=== PATIENT | female | born 1955 | race Caucasian/White ===

== ENCOUNTER 2020-06-07 08:54 | Outpatient (REF) | payer OTHER, SELFPAY | END 2020-06-07 08:55 | disposition home or self-care (01) | LOC: HO.LAB 08:54 | PROVIDERS: PCP Internal Medicine; Visit Provider Internal Medicine | DX: Z20.828 Contact with and (suspected) exposure to other viral communicable diseases (principal) | CPT/HCPCS: C9803; U0003 ==

== ENCOUNTER 2025-04-02 00:50 | Emergency (ER) | payer MEDICARE, SELFPAY ==
--- OUTSIDE RECORDS SUMMARY | 2025-01-16 05:30 | XMS_ITS ---
Author Organization [facility] [address] Address [address] [place] [address] Care Team Providers Care Field Service Technician Name Role Phone JEANNE MINERVA Primary Care Provider Encounters Encounter Location Date Provider Diagnosis [facility] [address] [place] [address] 01/16/2025 MINERVA BISWAS Plan Of Treatment Next Appt Details Provider Name:MINERVA BISWAS, 05/01/2025 09:00:00 AM, [address], [place], [address], Progress Notes * ANDRIA CLAYTON MDOB:1955 (69 yo F)Acc No.[id number]:01/16/2025 Progress Notes Patient: Fausto ANDRIA CHAKRABORTY Provider: Gertrude Biswas MD :1955 A ge:69 Y S ex:Female Date:01/16/2025 Address:[address] [id number] Subjective: * Chief Complaints: * * Medical History: Objective: * Vitals: Assessment: Plan: * Treatment: * Images: Billing Information: * Visit Code: * Procedure Codes: Care Plan Details* * Electronic signature of KADIE BISWAS MD on 04/02/2025 at 03:32 AM EDT Sign off status: Pending * Provider: Gertrude Biswas MD Date: 0 01/16/2025 Generated for Jeri caro/Antonio/Vernonitting on: 1 03:32 AM EDT
[2025-04-02 00:54] VITALS: BP 162/84; PULSE 86; O2SAT 100
[2025-04-02 00:58] VITALS: BP 162/84; PULSE 86; O2SAT 100
[2025-04-02 01:02] VITALS: BP 188/81; PULSE 76; RESP 18; TEMP 36.4; O2SAT 99; BMI 28.7
--- NOTE | 2025-04-02 01:08 | ECG_ITS ---
Test Reason : HTN Blood Pressure : */* mmHG Vent. Rate : 71 BPM Atrial Rate : 71 BPM P-R Int : 196 ms QRS Dur : 88 ms QT Int : 404 ms P-R-T Axes : 42 -14 44 degrees QTcB Int : 439 ms Normal sinus rhythm Normal ECG No previous ECGs available Referred By: Generic ED Physician Electronically Signed By: Eulogio Petersen
[2025-04-02 01:35] LABS: MANUAL DIFF FLAG NO
[2025-04-02 01:38] LABS: Hematocrit 40.8 % (37.0-47.0); Hemoglobin 13.4 g/dl (12.0-16.0); Imm Gran Abs Auto 0.02 X10*3/uL (0.00-0.03); Imm Gran Pct Auto 0.3 % (0.0-0.4); Lymphocytes Absolute Auto 2.0 X10*3/uL (1.2-4.9); Mean Corpuscular HGB Conc 32.8 g/dl (31.0-35.0); Mean Corpuscular Hemoglobin 29.5 pg (27.0-33.0); Mean Corpuscular Volume 89.9 fL (80.0-98.0); NRBC Abs Auto 0.000 X10*3/uL (0.0-0.012); NRBC Pct Auto 0.0 /100WBC (0.0-0.2); Platelet Count 224 X10*3/uL (160-400); Red Blood Count 4.54 X10*6/uL (4.20-5.50); White Blood Count 6.1 X10*3/uL (4.8-10.8)
[2025-04-02 02:01] LABS: Alanine Aminotransferase 20 U/L (0-31); Albumin Level 4.5 g/dL (3.5-5.0); Anion Gap 12 (12-20); Aspartate Amino Transferase 34 U/L (5-31); Blood Urea Nitrogen 16 mg/dL (9-16); Calcium 9.1 mg/dL (8.4-10.2); Carbon Dioxide 23 mmol/L (22-29); Chloride 112 mmol/L (96-108); Creatinine Clr Calc Pharmacy 61.4; Estimated Glomerular Filt Rate > 60; Lipase 36 U/L (8-78); Magnesium 2.0 mg/dL (1.6-2.6); Potassium 4.3 mmol/L (3.3-5.1); Sodium 143 mmol/L (135-145); Total Protein 7.1 g/dL (6.5-8.0); Troponin-I High Sensitivity < 2.7 ng/L (<3.5-17.0)
[2025-04-02 02:20] LABS: Alkaline Phosphatase 84 U/L (39-117)
--- OUTSIDE RECORDS SUMMARY | 2025-04-02 03:33 | XMS_ITS | Clinical Summary ---
Author Organization [facility] Address [address] [place] [phone] Phone Care Team Providers Care Clark Driver Name Role Phone Minerva Biswas MD Primary Care Provider Encounters Date Type Department Care Team Description 03/17/2025 8:48 AM EDT - 03/17/2025 11:59 PM EDT Hospital [facility]counter [facility] at [address] [phone] Encounter for screening mammogram for breast cancer Discharge Disposition: Home or Self Care from Last 3 Months Medical History Medical History Date Comments Epilepsy ([facility] V24, [facility] V28) DX:Epilepsy (HCC) Right knee pain DX:Right knee pa in Seizure ([facility] V24, [facility] V28) DX:Seizure (HCC) Social History Tobacco Use Types Packs/Day Years Used Date Smoking Tobacco: Never Smokeless Tobacco: Never Alcohol Use Standard Drinks/Week Comments Never 0 (1 standard drink = 0.6 oz pur e alcohol) Comments No Sex and Gender Information Value Date Recorded Sex Assigned at Not on file Legal Sex Female 9:57 PM EST Gender Identity Not on file Sexual Orientation Not on file Obstetrics History Para Term AB IAB SAB Ectopic Multiple Livin g Live Births 2 Last Filed Vital Signs Vital Sign Reading Time Taken Comments Blood Pressure 134/64 09/15/2023 7:52 AM EDT Sit ting R Arm Pulse 76 09/15/2023 7:52 AM EDT Temperature - - Respiratory Rate - - Oxygen Saturation - - Inhaled Oxygen Concentration - - Weight 68.9 kg (152 lb) 03/17/2025 8:58 AM EDT Height 160 cm (5' 3 ) 03/17/2025 8:58 AM EDT Body Mass Index 26.93 03/17/2025 8:58 AM EDT Plan of Treatment Health Maintenance Due Date Last Done Comments Colorectal Cancer Screening: Colonoscopy 1955 Pneumococcal Vaccine: 50+ Years (1 of 1 - PCV) 2006 Zoster Vaccines (2 of 3) 08/29/2021 022, 04/01/2021, 01/14/2018 Falls Risk Assessment 05/25/2022 Hepatitis C Screening 05/25/2022 Social Influencers of Health Screening 05/25/2022 Depression Screening 06/15/2024 COVID-19 Vaccine ( season) 2025 03/11/2024, 06/07/2022, 11/05/2021, Additional history exists Influenza Vaccine (#1) 2025 , 04/15/2022, 02/27/2021, Additional history exists Hypertension/CHF/CAD Annual BMP Blood Test 01/09/2026 01/09/2025 Breast Cancer Screening 03/17/2027 03/17/20, 03/16/2024, 09/25/2022, Additional history exists Cholesterol Screening (Lipid Panel) 01/09/2030 01/09/2025 DTaP,Tdap,and Td Vaccines (2 - Td or Tdap) 07/04/2031 07/04/2021 RSV Immunization Adult Patients (1 - 1-dose 75+ series) 10/23/2031 Osteoporosis Screening (Bone Density Screening) 03/16/2034 03/16/2024 HIB Vaccines Aged Out No longer eligi ble based on patient's age to complete this topic HPV Vaccines Aged Out No longer eligi ble based on patient's age to complete this topic Hepatitis A Vaccines Aged Out No long er eligible based on patient's age to complete this topic Hepatitis B Vaccines Aged Out No long er eligible based on patient's age to complete this topic IPV Vaccines Aged Out No longer eligi ble based on patient's age to complete this topic MMR Vaccines Aged Out No longer eligi ble based on patient's age to complete this topic Meningococcal ACWY Vaccine Aged Out N o longer eligible based on patient's age to complete this topic Meningococcal B Vaccine Aged Out No l onger eligible based on patient's age to complete this topic RSV Immunization Patients Under 20 months Aged Out No longer eligible based on patient's age to complete this topic Varicella Vaccines Aged Out No longer eligible based on patient's age to complete this topic Procedures Procedure Name Priority Date/Time Associated Diagnosis Comments MG MAMMO DIGITAL SCREENING W VIGNESH BILAT Routine 03/17/2025 9:04 AM EDT Encounter for screening mammogram for breast cancer CBC WITH AUTO DIFFERENTIAL Routine 01/09/2025 8:10 AM EDT Routine general medical examination at a health care facility Screening for lipoid disorders Epilepsy ([facility] V24, [facility] V28) LIPID PANEL WITH REFLEX TO DIRECT LDL Routine 01/09/2025 8:10 AM EDT Routine general medical examination at a health care facility Screening for lipoid disorders Epilepsy ([facility] V24, [facility] V28) COMPREHENSIVE METABOLIC PANEL Routine 01/09/2025 8:10 AM EDT Routine general medical examination at a health care facility Screening for lipoid disorders Epilepsy (CMS/HCC V24, CMS/HCC V28) CBC AND DIFFERENTIAL Routine 01/09/2025 8:10 AM EDT Routine general medical examination at a health care facility Screening for lipoid disorders Epilepsy (CMS/HCC V24, CMS/HCC V28) CARBAMAZEPINE LEVEL, TOTAL Routine 01/09/2025 8:10 AM EDT Routine general medical examination at a health care facility Screening for lipoid disorders Epilepsy ([facility]/HCC V24, CMS/HCC V28) KENNY DEXA AXIAL SKELETON Routine 03/16/2024 9:04 AM EDT Encounter for screening for osteoporosis from Last 3 Months or Most Recently Relevant to Health Maintenance Results * MG Mammo Digital Screening w Vignesh bilat (03/17/2025 9:04 AM EDT) Anatomical Region Laterality Modality Breast Bilateral Mammography 03/17/2025 9:08 AM EDT Impressions 03/17/2025 9:11 AM EDT No mammographic evidence of malignancy. A negative mammogram in the presence of a clinically suspicious palpable abnormality does not preclude the possibility of malignancy or alter the indications for biopsy. PQRI CPT II 3342F Code 53554, 78778 PQRI 225 CPT II 7025F TISSUE DENSITY: There are scattered areas of fibroglandular density. (BI-RADS category B) IMPRESSION: Benign. BI-RADS CATEGORY: 1 - NEGATIVE RECOMMENDATION: Screening bilateral mammogram is recommended in 1 year. Mammo Location: [facility], [address] [place] [address] -------- FINAL REPORT -------- Dictated By: Jeronimo Robles Dictated Date: 03/17/2025 09:08 ET Assigned Physician: Jeronimo Robles Reviewed and Electronically Signed By: Jeronimo Robles Signed Date: 03/17/2025 09:11 ET Workstation ID: [id number] Transcribed By: Self Edit Transcribed Date: 03/17/2025 09:08 ET Narrative 03/17/2025 9:11 AM EDT CLINICAL: The patient is a 69 years Female presenting for routine screening mammography. COMPARISON: Most recently 03/16/2024 and most remotely 11/28/2015. TECHNIQUE: Full-field digital mammography of the breasts bilaterally consisting of tomosynthesis in MLO and CC projection is performed in the Tern 2000-D unit. Computer aided detection utilizing the iCAD system was utilized. FINDINGS: The breasts are again seen to be composed of a combination of fatty and fibroglandular elements. There is no suspicious cluster of microcalcifications, mass, or area of architectural distortion. There is no skin thickening or nipple retraction. Procedure Note Jeronimo Robles MD - 03/17/2025 CLINICAL: The patient is a 69 years Female presenting for routinescreening mammography. COMPARISON: Most recently 03/16/2024 and most remotely 11/28/2015. TECHNIQUE: Full-field digital mammography of the breasts bilaterallyconsisting of tomosynthesis in MLO and CC projection is performed in theGE Senographe 2000-D unit. Computer aided detection utilizing the PronotaDsystem was utilized. FINDINGS: The breasts are again seen to be composed of a combination offatty and fibroglandular elements. There is no suspicious cluster ofmicrocalcifications, mass, or area of architectural distortion. There isno skin thickening or nipple retraction. IMPRESSION: No mammographic evidence of malignancy. A negative mammogram in the presence of a clinically suspicious palpableabnormality does not preclude the possibility of malignancy or alter theindications for biopsy. PQRI CPT II 3342F Code 16083, 71828 PQRI 225 CPT II 7025F TISSUE DENSITY: There are scattered areas of fibroglandular density.(BI-RADS category B) IMPRESSION: Benign. BI-RADS CATEGORY: 1 - NEGATIVE RECOMMENDATION: Screening bilateral mammogram is recommended in 1 year. Mammo Location: [facility], [address] [place] [id number] -------- FINAL REPORT -------- Dictated By: Jeronimo Robles Dictated Date: 03/17/2025 09:08 ET Assigned Physician: Jeronimo Robles Reviewed and Electronically Signed By: Jeronimo Robles Signed Date: 03/17/2025 09:11 ET Workstation ID: [id number] Transcribed By: Self Edit Transcribed Date: 03/17/2025 09:08 ET us Self Referral [facility] IMG BI PROCEDURES Final Resul t * (ABNORMAL) Lipid panel with reflex to direct LDL (01/09/2025 8:10 AM EDT) Cholesterol 229(H) 0 - 200 mg/dL LAB CHEMISTRY METHOD 01/09/2025 9:42 AM EDT [facility] Triglycerides 148 0 - 150 mg/dL LAB CHEMISTRY METHOD 01/09/2025 9:42 AM EDT [facility] HDL 59 >=40 mg/dL LAB CHEMISTRY METHOD 01/09/2025 9:42 AM EDT [facility] LDL Calculated 140(H) 0 - 100 mg/dL LAB CHEMISTRY METHOD 01/09/2025 9:42 AM EDT [facility] VLDL Cholesterol Markus 29.6 mg/dL LAB CHEMISTRY METHOD 01/09/2025 9:42 AM EDT [facility] Non HDL Chol. (LDL+VLDL) 170(H) <145 mg/dL LAB CHEMISTRY METHOD 01/09/2025 9:42 AM EDT [facility] Chol/HDL Ratio 3.9 0.0 - 4.4 LAB CHEMISTRY METHOD 01/09/2025 9:42 AM EDT [facility] Blood Venous blood specimen / Unknown Venipuncture / Unknown 01/09/2025 8:10 AM EDT 01/09/2025 9:06 AM EDT Minerva Biswas MD LAB BLOOD ORDERABLES Final Resul t [facility] [address] [place] [address], * (ABNORMAL) CBC auto differential (01/09/2025 8:10 AM EDT) WBC 3.8(L) 4.8 - 10.8 K/mcL LAB HEMETOLOGY METHOD 01/09/2025 9:23 AM [facility] RBC 4.30 3.80 - 4.80 M/mcL LAB HEMETOLOGY METHOD 01/09/2025 9:23 AM T [facility] Hemoglobin 12.5 11.5 - 16.0 g/dL LAB HEMETOLOGY METHOD 01/09/2025 9:23 AM T [facility] Hematocrit 39.4 35.0 - 47.0 % LAB HEMETOLOGY METHOD 01/09/2025 9:23 AM T [facility] MCV 91.8 79.0 - 98.0 FL LAB HEMETOLOGY METHOD 01/09/2025 9:23 AM [facility] MCH 29.1 27.0 - 32.0 pcg LAB HEMETOLOGY METHOD 01/09/2025 9:23 AM [facility] MCHC 31.7(L) 32.0 - 37.0 g/dL LAB HEMETOLOGY METHOD 01/09/2025 9:23 AM [facility] RDW 13.1 11.0 - 15.0 % LAB HEMETOLOGY METHOD 01/09/2025 9:23 AM [facility] Platelets 240 130 - 400 K/mcL LAB HEMETOLOGY METHOD 01/09/2025 9:23 AM [facility] MPV 10.5 7.0 - 11.0 FL LAB HEMETOLOGY METHOD 01/09/2025 9:23 AM [facility] NRBC 0.0 <1.0 % LAB HEMETOLOGY METHOD 01/09/2025 9:23 AM [facility] NRBC Absolute 0.00 <0.10 K/mcL LAB HEMETOLOGY METHOD 01/09/2025 9:23 AM [facility] Neutrophils Relative 50.9 % LAB HEMETOLOGY METHOD 01/09/2025 9:23 AM [facility] Lymphocytes Relative 39.7 % LAB HEMETOLOGY METHOD 01/09/2025 9:23 AM [facility] Monocytes Relative 7.3 % LAB HEMETOLOGY METHOD 01/09/2025 9:23 AM [facility] Eosinophils Relative 1.6 % LAB HEMETOLOGY METHOD 01/09/2025 9:23 AM [facility] Basophils Relative 0.5 % LAB HEMETOLOGY METHOD 01/09/2025 9:23 AM [facility] Immature Granulocytes Relative 0.0 % LAB HEMETOLOGY METHOD 01/09/2025 9:23 AM [facility] Neutrophils Absolute 1.95 1.50 - 7.00 K/mcL LAB HEMETOLOGY METHOD 01/09/2025 9:23 AM EDT [facility] Lymphocytes Absolute 1.52 1.00 - 5.00 K/[facility] LAB HEMETOLOGY METHOD 01/09/2025 9:23 AM EDT [facility] Monocytes Absolute 0.28 0.20 - 1.00 K/[facility] LAB HEMETOLOGY METHOD 01/09/2025 9:23 AM EDT [facility] Eosinophils Absolute 0.06 0.00 - 0.50 K/[facility] LAB HEMETOLOGY METHOD 01/09/2025 9:23 AM EDT [facility] Basophils Absolute 0.02 0.00 - 0.20 K/[facility] LAB HEMETOLOGY METHOD 01/09/2025 9:23 AM EDT [facility] Immature Granulocytes Absolute 0.00 0.00 - 0.03 K/[facility] LAB HEMETOLOGY METHOD 01/09/2025 9:23 AM EDT [facility] Blood Venous blood specimen / Unknown Venipuncture / Unknown 01/09/2025 8:10 AM EDT 01/09/2025 9:08 AM EDT us Minerva Biswas MD LAB BLOOD ORDERABLES Final Resul t [facility] [address] [place] [address], * Carbamazepine level, total (01/09/2025 8:10 AM EDT) Carbamazepine Level 8.4 8.0 - 12.0 mcg/mL LAB CHEMISTRY METHOD 01/09/2025 9:42 AM EDT [facility] Blood Venous blood specimen / Unknown Venipuncture / Unknown 01/09/2025 8:10 AM EDT 01/09/2025 9:06 AM EDT us Minerva Biswas MD LAB BLOOD ORDERABLES Final Resul t [facility] [address] [place] [address], * (ABNORMAL) Comprehensive metabolic panel (01/09/2025 8:10 AM EDT) Sodium 141 133 - 145 mmol/L LAB CHEMISTRY METHOD 01/09/2025 9:42 AM [facility] Potassium 4.0 3.5 - 5.5 mmol/L LAB CHEMISTRY METHOD 01/09/2025 9:42 AM [facility] Chloride 111(H) 96 - 110 mmol/L LAB CHEMISTRY METHOD 01/09/2025 9:42 AM [facility] CO2 27 21 - 32 mmol/L LAB CHEMISTRY METHOD 01/09/2025 9:42 AM [facility] Anion Gap 3 3 - 11 LAB CHEMISTRY METHOD 01/09/2025 9:42 AM [facility] Glucose 89 70 - 100 mg/dL LAB CHEMISTRY METHOD 01/09/2025 9:42 AM [facility] BUN 10 5 - 25 mg/dL LAB CHEMISTRY METHOD 01/09/2025 9:42 AM [facility] Creatinine 0.71 0.50 - 1.10 mg/dL LAB CHEMISTRY METHOD 01/09/2025 9:42 AM [facility] eGFR 93 >=60 mL/min/1. 73m2 LAB CHEMISTRY METHOD 01/09/2025 9:42 AM [facility] Comment:Calculation based on the Chronic Kidney Disease Epidemiology Collaboration (CKD-EPI) equation refit without adjustment for race. BUN/Creatinine Ratio 14.1 LAB CHEMISTRY METHOD 01/09/2025 9:42 AM [facility] Calcium 8.8 8.5 - 10.5 mg/dL LAB CHEMISTRY METHOD 01/09/2025 9:42 AM EDT [facility] AST (SGOT) 20 10 - 42 unit/L LAB CHEMISTRY METHOD 01/09/2025 9:42 AM EDT [facility] ALT (SGPT) 20 10 - 60 unit/L LAB [facility]STR[facility] Alkaline Phosphatase 83 42 - 121 unit/L LAB CHEMISTRY METHOD 01/09/2025 9:42 AM EDT [facility] Total Protein 6.7 6.0 - 8.0 g/dL LAB CHEMISTRY METHOD 01/09/2025 9:42 AM T [facility] Albumin 3.6 3.2 - 5.0 g/dL LAB CHEMISTRY METHOD 01/09/2025 9:42 AM [facility] Total Bilirubin 0.3 0.0 - 1.4 mg/dL LAB CHEMISTRY METHOD 01/09/2025 9:42 AM EDT [facility] Blood Venous blood specimen / Unknown Venipuncture / Unknown 01/09/2025 8:10 AM EDT 01/09/2025 9:06 AM EDT us Minerva Biswas MD LAB BLOOD ORDERABLES Final Resul t [facility] [address] [place] [address], * KENNY DEXA AXIAL SKELETON (03/16/2024 9:04 AM EDT) Anatomical Region Laterality Modality Mammography 03/16/2024 7:13 AM EDT Narrative 03/16/2024 9:04 AM EDT [facility] Diagnostic Imaging Department [address] [place] [address] Patient: ANDRIA CLAYTON /Age/Sex: 1955 68 - F Unit#: [id number] Location/Status: SPDIMA/REG CLI [facility] Ordering Physician: MINERVA BISWAS MD Kenny Dexa Axial Skeleton - 03/16/24730 Report Status:Signed HISTORY: The patient is a 68-year-old postmenopausal female with clinical concern for metabolic bone disease. FINDINGS: Dual energy x-ray absorptiometry of the lumbar spine and femurs is performed. The mean bone mineral density at L2-4 is 1.010 gm/cm2 which is 84% of that of young normals and 101% of that of age matched controls. This yields a T- score of -1.6 and a Z-score of 0.0 which is diagnostic of osteopenia. The mean bone mineral density of the femurs bilaterally is 0.795 gm/cm2 which is 79% of that of young normals and 94% of that of age matched controls. This yields a T-score of -1.7 and a Z-score of -0.4 which is diagnostic of osteopenia. IMPRESSION: 1. Osteopenia. There has been a decrease of 6.9% in bone mineral density in the lumbar spine since the prior examination of 10/26/2014. There has been a decrease of 8.5% in bone mineral density in the right femur and a decrease of 1.0% in bone mineral density in the left femur. 2. FRAX analysis yields a 10-year probability of major osteoporotic fracture of 5.3% and a 10-year probability of hip fracture of 0.6%. Code 46234 Dictating Physician: JERONIMO ROBLES MD Electronically Signed by: JERONIMO ROBLES MD Dic Date/Time: 03/16/24 0859 Sign date/Time: 03/16/24 0904 Procedure Note Jeronimo Robles MD - 04/12/2024 [facility] Diagnostic Imaging Department [address] [place] [id number] Patient: ANDRIA CLAYTON Belinda GerardoB./Age/Sex: 1955 - 68 - F Unit#: [id number] Location/Status: [facility] CLI Mnemonic/Ordering Site: [facility] Ordering Physician: MINERVA BISWAS MD Kenny Dexa Axial Skeleton - 03/16/24730 Report Status:Signed HISTORY: The patient is a 68-year-old postmenopausal female withclinical concern for metabolic bone disease. FINDINGS: Dual energy x-ray absorptiometry of the lumbar spine and femursis performed. The mean bone mineral density at L2-4 is 1.010 gm/cm2 which is84% of that of young normals and 101% of that of age matched controls. Thisyields a T- score of -1.6 and a Z-score of 0.0 which is diagnostic of osteopenia. The mean bone mineral density of the femurs bilaterally is 0.795 gm/zx2tzamy is 79% of that of young normals and 94% of that of age matched controls.This yields a T-score of -1.7 and a Z-score of -0.4 which is diagnostic of osteopenia. IMPRESSION: 1. Osteopenia. There has been a decrease of 6.9% in bone mineral densityin the lumbar spine since the prior examination of 10/26/2014. There has tanner decrease of 8.5% in bone mineral density in the right femur and a decreaseof 1.0% in bone mineral density in the left femur. 2. FRAX analysis yields a 10-year probability of major osteoporoticfracture of 5.3% and a 10-year probability of hip fracture of 0.6%. Code 86009 Dictating Physician: JERONIMO ROBLES MD Electronically Signed by: JERONIMO ROBLES MD Dic Date/Time: 03/16/24 0859 Sign date/Time: 03/16/2404 Minerva Biswas MD IMG BI PROCEDURES Final Result from Last 3 Months or Most Recently Relevant to Health Maintenance Insurance [facility] Care Teams Clark Driver Relationship Specialty Start Date End Date Minerva Biswas MD [address] [place] [address] [id number] PCP - General Internal Medicine 12/13/24
--- OUTSIDE RECORDS SUMMARY | 2025-04-02 03:33 | XMS_ITS | Patient Health Record ---
Author Organization [facility] [address] Address [address] [place] [address] Care Team Providers Care Sales Department Clerk Name Role Phone MINERVA BISWAS Primary Care Provider [phone] PIZANOKENNY Unavailable [phone] Allergies No Known Allergies Results Component Value Reference Range Notes MG MAMMO DIGITAL SCREENING W ROSSY BILAT Reviewed date:03/21/2025 10:52:06 AM Interpretation: Performing Lab: Notes/Report: Note See Note [facility], a member of [facility] Patient Name: ANDRIA CLAYTON Date of : 1955 Reason for Exam: Exam Date: 03/17/2025 [id number] EST Report Status: Final Ordering Provider: SELF REFERRAL SFPL PCP: MINERVA BISWAS CLINICAL: The burt marcum is a 69 years Female presenting for routine screening mammography. COMPARISON: Most recently 03/16/2024 and most remotely 11/28/2015. TECHNIQUE: Full-fiel d digital mammography of the breasts bilaterally consisting of tomosynthesis in MLO and CC projection is performed in the [employer] 2000-D unit. Computer aided detection utilizing the iCAD system was utilized. FINDINGS: The breast s are again seen to be composed of a combination of fatty and fibroglandular elements. There is no suspicious cluster of microcalcifications, mass, or area of architectural distortion. There is no skin thickening or nipple retraction. IMPRESSION: No mammographic evidence of malignancy. A negative mammogram in the presence of a clinically suspicious palpable abnormality does not preclude the possibility of malignancy or alter the indications for biopsy. PQRI CPT II 3342F Code 88546, 34705 PQRI 225 CPT II 7025F TISSUE DENSITY: Ther e are scattered areas of fibroglandular density. (BI-RADS category B) IMPRESSION: Benign. BI-RADS CATEGORY: 1 - NEGATIVE RECOMMENDATION: Screening bilateral mammogram is recommended in 1 year. Mammo Location: [facility], [address] [place] [id number] -------- FINAL REPOR T -------- Dictated By: James Robles Dictated Date: 03/17/2025 09:08 ET Assigned Physician: James Robles Reviewed and Electronically Signed By: James Robles Signed Date: 09:11 ET Workstation ID: [id number] Transcribed By: Self Edit Transcribed Date: 03/17/2025 09:08 ET CARBAMAZEPINE LEVEL, TOTAL Reviewed date:01/13/2025 10:38:40 AM Interpretation: Performing Lab: Notes/Report: Carbamazepine Level 8.4 8.0-12.0 mcg/mL COMPREHENSIVE METABOLIC PANE L Reviewed date:01/17/2025 09:40:26 AM Interpretation: Performing Lab: Notes/Report: Sodium 141 133-145 mmol/L Potassium 4.0 3.5-5.5 mmol/L Chloride 111 96-110 mmol/L CO2 27 21-32 mmol/L Anion Gap 3 3-11 Glucose 89 70-100 mg/dL BUN 10 5-25 mg/dL Creatinine 0.71 0.50-1.10 mg/dL eGFR 93 >=60 mL/min/1.73m2 Calculati on based on the Chronic Kidney Disease Epidemiology Collaboration (CKD-EPI) equation refit without adjustment for race. BUN/Creatinine Ratio 14.1 Calcium 8.8 8.5-10.5 mg/dL AST (SGOT) 20 10-42 unit/L ALT (SGPT) 20 10-60 unit/L Alkaline Phosphatase 83 42-121 unit/L Total Protein 6.7 6.0-8.0 g/dL Albumin 3.6 3.2-5.0 g/dL Total Bilirubin 0.3 0.0-1.4 mg/dL LIPID PANEL WITH REFLEX TO D IRECT LDL Reviewed date:01/17/2025 09:40:54 AM Interpretation: Performing Lab: Notes/Report: Cholesterol 229 0-200 mg/dL Triglycerides 148 0-150 mg/dL HDL 59 >=40 mg/dL LDL Calculated 140 0-100 mg/dL VLDL Cholesterol Markus 29.6 Non HDL Chol. (LDL+VLDL) 170 <145 mg/dL Chol/HDL Ratio 3.9 0.0-4.4 CBC WITH AUTO DIFFERENTIAL Reviewed date:01/17/2025 09:40:34 AM Interpretation: Performing Lab: Notes/Report: WBC 3.8 4.8-10.8 K/mcL RBC 4.30 3.80-4.80 M/mcL Hemoglobin 12.5 11.5-16.0 g/dL Hematocrit 39.4 35.0-47.0 % MCV 91.8 79.0-98.0 FL MCH 29.1 27.0-32.0 pcg MCHC 31.7 32.0-37.0 g/dL RDW 13.1 11.0-15.0 % Platelets 240 130-400 K/mcL MPV 10.5 7.0-11.0 FL NRBC 0.0 <1.0 % NRBC Absolute 0.00 <0.10 K/mcL Neutrophils Relative 50.9 Lymphocytes Relative 39.7 Monocytes Relative 7.3 Eosinophils Relative 1.6 Basophils Relative 0.5 Immature Granulocytes Relative 0.0 Neutrophils Absolute 1.95 1.50-7.00 K/mcL Lymphocytes Absolute 1.52 1.00-5.00 K/mcL Monocytes Absolute 0.28 0.20-1.00 K/mcL Eosinophils Absolute 0.06 0.00-0.50 K/mcL Basophils Absolute 0.02 0.00-0.20 K/mcL Immature Granulocytes Absolute 0.00 0.00-0.03 K/mcL Reason For Referral No Information Medications Medication SIG (Take, Route, Frequency, Duration) Notes Start Date End Date Status Aspirin 81 81 MG 1 tablet Orally Once a day; Duration: 90 days Active Atorvastatin Calcium 40 MG 1 tablet in t he AM Orally Once a day; Duration: 90 days Active amLODIPine Besylate 2.5 MG 1 tablet Oral ly Once a day; Duration: 90 days Active carBAMazepine 200 MG two tablets Orally nightly; Duration: 90 days Active Immunizations Vaccine Route Administration Date Status Comme nts influenza IM Intramuscular 04/24/2020 Administered influenza IM Intramuscular 02/27/2021 Administered Influenza, seasonal, injectable, preservative free, 3 yrs and above IM Intramuscular 04/18/2019 Administered Moderna Covid-19 Vaccine IM Intramuscular 08/14/2020 Administered Moderna Covid-19 Vaccine IM Intramuscular 09/08/2020 Administered SHINGRIX IM Intramuscular 01/14/2018 Administered SHINGRIX IM Intramuscular 04/01/2021 Administered SHINGRIX SC Subcutaneous 07/04/2021 Administered R yoan p SQ Td (adult) preservative free IM Intramuscular 07/04/2021 Administered Social History Tobacco Use: Social History Observation Description Date Details (start date - stop date) Never Smoker NA - NA Tobacco Use/Smoking Question Answer Notes Are you a nonsmoker Section Notes: alcohol: declines tob: declines drug: declines 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 Problems Problem Type SNOMED Code ICD Code Onset Dates Problem Status W/U Status Risk Notes Problem Obesity due to exces s calories (743029789) Other obesity due to excess calories (E66.09) Active confirmed Problem Mixed hyperlipidemia (318175243) Mixed hyperlipidemia (E78.2) Active confirmed Problem Hypokalemia (53513410) Hypokalemia (E87.6) Active confirmed Problem Epilepsy (20177070) Epilepsy, unspecified, not intractable, without status epilepticus (G40.909) Active confirmed Problem Cardiac arrhythmia (599026562) Cardiac arrhythmia, unspecified (I49.9) Active confirmed Problem Allergic rhinitis (33969962) Other allergic rhinitis (J30.89) Active confirmed Problem Chronic sinusitis (81964345) Chronic sinusitis, unspecified (J32.9) Active confirmed Problem Adult health examination (711369571) Encounter for general adult medical examination without abnormal findings (Z00.00) Active confirmed Problem Screening for malignant neoplasm of breast (360425444) Encounter for screening mammogram for malignant neoplasm of breast (Z12.31) Active confirmed Problem Screening for osteoporosis (759474751) Encounter for screening for osteoporosis (Z13.820) Active confirmed Problem Essential hypertension (96551638) Essential hypertension (I10) Active confirmed Problem Hyperlipidaemia (93818847) Hyperlipidemia, unspecified hyperlipidemia type (E78.5) Active confirmed Problem Hyperlipoproteinemia (4083521) Acquired hyperlipoproteinemia (E78.5) Active confirmed Problem Annual health maintenance examination (05120475) Annual physical exam (Z00.00) Active confirmed Problem Vitamin D deficiency (85139793) Vitamin D deficiency (E55.9) Active confirmed Problem Seizure disorder (379968939) Seizure disorder (G40.909) Active confirmed Problem Confusion (78879467) Confusion (R41.0) Active c onfirmed Problem Cataract (863571505) Cataract of both eyes, unspecified cataract type (H26.9) Active confirmed Problem Constipation (89554777) Constipation in female (K59.00) Active confirmed Problem Urinary frequency (457229946) Urinary frequency (R35.0) Active confirmed Problem Elevated blood pressure reading without diagnosis of hypertension (150731280) Elevated blood pressure reading in office with white coat syndrome, without diagnosis of hypertension (R03.0) Active confirmed Problem Body mass index 30+ - obesity (872014643) Body mass index [BMI] 30.0-30.9, adult (Z68.30) Active confirmed Problem Epilepsy (43950623) Nonintractab le epilepsy without status epilepticus, unspecified epilepsy type (G40.909) Active confirmed Problem Post-discharge follow-up (439407438) Hospital discharge follow-up (Z09) Active confirmed Problem Lipid screening (205269642) Lipid screening (Z13.220) Active confirmed Vital Signs Heart Rate 83 /min 01/23/2025 Oximetry 98 % 01/23/2025 Blood pressure diastolic 80 mm Hg 01/23/2025 Height 62 in 01/23/2025 Blood pressure systolic 128 mm Hg 01/23/2025 Weight 149.8 lbs 01/23/2025 BMI 27.4 kg/m2 01/23/2025 Encounters Encounter Location Date Provider Diagnosis [facility] [address] [place], [place] 09/19/2024 TALAL BISWAS Seizure disorder G40 .909 and Hyperlipidemia, unspecified hyperlipidemia type E78.[address] [facility] [address] [place], [place] 01/23/2025 KENNY PIZANO Mixed hyperlipidemia E78.2 ; BMI 27.0-27.9,adult Z68.27 ; Other epilepsy without status epilepticus, not intractable G40.802 ; Essential hypertension I10 and Encounter for examination of blood pressure without abnormal findings Z01.30 [facility] [address] [place] [id number] 10/04/2024 MINERVA BISWAS [facility] [address] [place] [address] 01/13/2025 MINERVA BISWAS Assessments Encounter Date Diagnosis (ICD Code) Assessment Notes Treatment Notes Treatment Clinical Notes Section Notes 01/23/2025 Mixed hyperlipidemia (ICD-10 - E78.2) Andria is a pleasant 69-year-old female presents the office for follow-up visit. # Epilepsy: Has been multiple decades since she has had a seizure. Takes carbamazepine, is supposed to take 200 mg twice daily, but she takes 400 mg nightly. # Hypertension: Blood pressure stable 128/80. Takes amlodipine 2.5 mg as needed. She will monitor her blood pressure at home daily and take as needed. Most of the time, she states her blood pressure is within the 120s over 70s. # Does not take baby aspirin, discussed effects and protective cardiovascular effects. # Hyperlipidemia: Lipids February 2025 within normal limits total cholesterol 151, triglycerides 65, HDL 62 and LDL 76. Previous lipid panel has since increased, cholesterol 229 LDL 140, non-HDL 170. Will reinitiate atorvastatin 40 mg.Discussed coronary calcium scan for screening, but patient states she is not interested at this time. # Patient has low white blood cell count at 3.8. Declines any recent sick contacts, vaccinations, illness. Will repeat CBC. Patient requesting to follow-up with Dr.T Biswas, due for Medicare wellness visit in 3 months, will book with fasting labs. All quetsions answered to patients satisfaction. Patient verbalized understanding of diagnosis and treatments explained. To call sooner prior to next visit it any questions/concerns arise. Case discussed with collaborating physician Kayy Biswas who reviewed the assessment and plan. Chart, medications, labs, vital signs reviewed. Dictation was accomplished with the use of [employer] voice recognition software, prone to medical misidentifications and grammatical errors. This is unintentional and the practitioner does try to identify and correct these, but some could still be present. Please do not hesitate to contact practitioner for clarification. 01/23/2025 BMI 27.0-27.9,adult (ICD-10 - Z68.27) Andria is a pleasant 69-year-old female presents the office for follow-up visit. # Epilepsy: Has been multiple decades since she has had a seizure. Takes carbamazepine, is supposed to take 200 mg twice daily, but she takes 400 mg nightly. # Hypertension: Blood pressure stable 128/80. Takes amlodipine 2.5 mg as needed. She will monitor her blood pressure at home daily and take as needed. Most of the time, she states her blood pressure is within the 120s over 70s. # Does not take baby aspirin, discussed effects and protective cardiovascular effects. # Hyperlipidemia: Lipids February 2025 within normal limits total cholesterol 151, triglycerides 65, HDL 62 and LDL 76. Previous lipid panel has since increased, cholesterol 229 LDL 140, non-HDL 170. Will reinitiate atorvastatin 40 mg.Discussed coronary calcium scan for screening, but patient states she is not interested at this time. # Patient has low white blood cell count at 3.8. Declines any recent sick contacts, vaccinations, illness. Will repeat CBC. Patient requesting to follow-up with Dr.T Biswas, due for Medicare wellness visit in 3 months, will book with fasting labs. All quetsions answered to patients satisfaction. Patient verbalized understanding of diagnosis and treatments explained. To call sooner prior to next visit it any questions/concerns arise. Case discussed with collaborating physician Kayy Biswas who reviewed the assessment and plan. Chart, medications, labs, vital signs reviewed. Dictation was accomplished with the use of [employer] voice recognition software, prone to medical misidentifications and grammatical errors. This is unintentional and the practitioner does try to identify and correct these, but some could still be present. Please do not hesitate to contact practitioner for clarification. 09/19/2024 Seizure disorder (ICD-10 - G40.909) Your patient was diagnosed with dyslipidemia. Discussed the role of [place] [employer] guidelines of lowering LDL to 100 or below and LDL of less than 70 in diabetics or previous history of heart attack. Discussed raising HDL to 50 or 60. Discussed role of incorporation of wild caught fish or use of fish oil supplements as appropriate. Discussed triglyceride levels to be below 100 and role of oxidation of LDL with oxidative stress with metabolic syndrome high visceral adiposity, and consumption of standard [place] diet. Educated on role of lifestyle elimination of processed food eating clean home cooking, diet and exercise in lowering cholesterol. Discussed the role of such statins. Candid discussion on risk factors versus benefits. Recommended either rosuvastatin or atorvastatin. Explored the role of co-Q10 as appropriate. [place] [employer] goal of 6-10,000 steps a day. in some cases there may be use of Zetia or PSK 9 inhibitors. Discussed role of coronary calcium scan for calcium buildup in the coronary arteries which is case specific and should be individualized. Discussed role of turmeric, to help with inflammation, lowered the CRP, along with gut health use of probiotics, eating yogurt and a balanced diet. Discussed role of good fats including organic butter , avoidance of margarine and processed sugar, white bread high fructose corn syrup, canned food chips soda and alcohol, and consumption of organic eggs as appropriate patient will continue to lose weight which will improve her cholesterol continue taking carbamazepine for seizure disorder with level monitoring. And follow-up in a few months 01/23/2025 Other epilepsy without status epilepticus, not intractable (ICD-10 - G40.802) Andria is a pleasant 69-year-old female presents the office for follow-up visit. # Epilepsy: Has been multiple decades since she has had a seizure. Takes carbamazepine, is supposed to take 200 mg twice daily, but she takes 400 mg nightly. # Hypertension: Blood pressure stable 128/80. Takes amlodipine 2.5 mg as needed. She will monitor her blood pressure at home daily and take as needed. Most of the time, she states her blood pressure is within the 120s over 70s. # Does not take baby aspirin, discussed effects and protective cardiovascular effects. # Hyperlipidemia: Lipids February 2025 within normal limits total cholesterol 151, triglycerides 65, HDL 62 and LDL 76. Previous lipid panel has since increased, cholesterol 229 LDL 140, non-HDL 170. Will reinitiate atorvastatin 40 mg.Discussed coronary calcium scan for screening, but patient states she is not interested at this time. # Patient has low white blood cell count at 3.8. Declines any recent sick contacts, vaccinations, illness. Will repeat CBC. Patient requesting to follow-up with Dr.T Biswas, due for Medicare wellness visit in 3 months, will book with fasting labs. All quetsions answered to patients satisfaction. Patient verbalized understanding of diagnosis and treatments explained. To call sooner prior to next visit it any questions/concerns arise. Case discussed with collaborating physician Kayy Biswas who reviewed the assessment and plan. Chart, medications, labs, vital signs reviewed. Dictation was accomplished with the use of [employer] voice recognition software, prone to medical misidentifications and grammatical errors. This is unintentional and the practitioner does try to identify and correct these, but some could still be present. Please do not hesitate to contact practitioner for clarification. 09/19/2024 Hyperlipidemia, unspecified hyperlipidemia type (ICD-10 - E78.5) Your patient was diagnosed with dyslipidemia. Discussed the role of [place] [employer] guidelines of lowering LDL to 100 or below and LDL of less than 70 in diabetics or previous history of heart attack. Discussed raising HDL to 50 or 60. Discussed role of incorporation of wild caught fish or use of fish oil supplements as appropriate. Discussed triglyceride levels to be below 100 and role of oxidation of LDL with oxidative stress with metabolic syndrome high visceral adiposity, and consumption of standard [place] diet. Educated on role of lifestyle elimination of processed food eating clean home cooking, diet and exercise in lowering cholesterol. Discussed the role of such statins. Candid discussion on risk factors versus benefits. Recommended either rosuvastatin or atorvastatin. Explored the role of co-Q10 as appropriate. [place] [employer] goal of 6-10,000 steps a day. in some cases there may be use of Zetia or PSK 9 inhibitors. Discussed role of coronary calcium scan for calcium buildup in the coronary arteries which is case specific and should be individualized. Discussed role of turmeric, to help with inflammation, lowered the CRP, along with gut health use of probiotics, eating yogurt and a balanced diet. Discussed role of good fats including organic butter , avoidance of margarine and processed sugar, white bread high fructose corn syrup, canned food chips soda and alcohol, and consumption of organic eggs as appropriate patient will continue to lose weight which will improve her cholesterol continue taking carbamazepine for seizure disorder with level monitoring. And follow-up in a few months 01/23/2025 Essential hypertension (ICD-10 - I10) Andria is a pleasant 69-year-old female presents the office for follow-up visit. # Epilepsy: Has been multiple decades since she has had a seizure. Takes carbamazepine, is supposed to take 200 mg twice daily, but she takes 400 mg nightly. # Hypertension: Blood pressure stable 128/80. Takes amlodipine 2.5 mg as needed. She will monitor her blood pressure at home daily and take as needed. Most of the time, she states her blood pressure is within the 120s over 70s. # Does not take baby aspirin, discussed effects and protective cardiovascular effects. # Hyperlipidemia: Lipids February 2025 within normal limits total cholesterol 151, triglycerides 65, HDL 62 and LDL 76. Previous lipid panel has since increased, cholesterol 229 LDL 140, non-HDL 170. Will reinitiate atorvastatin 40 mg.Discussed coronary calcium scan for screening, but patient states she is not interested at this time. # Patient has low white blood cell count at 3.8. Declines any recent sick contacts, vaccinations, illness. Will repeat CBC. Patient requesting to follow-up with Dr.T Biswas, [facility] for Medicare wellness visit in 3 months, will book with fasting labs. All quetsions answered to patients satisfaction. Patient verbalized understanding of diagnosis and treatments explained. To call sooner prior to next visit it any questions/concerns arise. Case discussed with collaborating physician Kayy Biswas who reviewed the assessment and plan. Chart, medications, labs, vital signs reviewed. Dictation was accomplished with the use of [employer] voice recognition software, prone to medical misidentifications and grammatical errors. This is unintentional and the practitioner does try to identify and correct these, but some could still be present. Please do not hesitate to contact practitioner for clarification. 01/23/2025 Encounter for examination of blood pressure without abnormal findings (ICD-10 - Z01.30) Andria is a pleasant 69-year-old female presents the office for follow-up visit. # Epilepsy: Has been multiple decades since she has had a seizure. Takes carbamazepine, is supposed to take 200 mg twice daily, but she takes 400 mg nightly. # Hypertension: Blood pressure stable 128/80. Takes amlodipine 2.5 mg as needed. She will monitor her blood pressure at home daily and take as needed. Most of the time, she states her blood pressure is within the 120s over 70s. # Does not take baby aspirin, discussed effects and protective cardiovascular effects. # Hyperlipidemia: Lipids February 2025 within normal limits total cholesterol 151, triglycerides 65, HDL 62 and LDL 76. Previous lipid panel has since increased, cholesterol 229 LDL 140, non-HDL 170. Will reinitiate atorvastatin 40 mg.Discussed coronary calcium scan for screening, but patient states she is not interested at this time. # Patient has low white blood cell count at 3.8. Declines any recent sick contacts, vaccinations, illness. Will repeat CBC. Patient requesting to follow-up with Dr.T Biswas, due for Medicare wellness visit in 3 months, will book with fasting labs. All quetsions answered to patients satisfaction. Patient verbalized understanding of diagnosis and treatments explained. To call sooner prior to next visit it any questions/concerns arise. Case discussed with collaborating physician Kayy Biswas who reviewed the assessment and plan. Chart, medications, labs, vital signs reviewed. Dictation was accomplished with the use of [employer] voice recognition software, prone to medical misidentifications and grammatical errors. This is unintentional and the practitioner does try to identify and correct these, but some could still be present. Please do not hesitate to contact practitioner for clarification. Plan Of Treatment Pending Test Test Name Order Date Mammogram 07/30/2022 Mammogram 04/24/2020 Mammogram 04/13/2018 Mammogram 03/08/2024 Lipid Panel 02/21/2019 Comp. Metabolic Panel (14) 02/21/2019 CBC 04/13/2018 Bone Density 04/13/2018 Bone Density 03/08/2024 Bone Density 01/14/2018 CARBAMAZEPINE 01/14/2018 CARBAMAZEPINE 04/24/2020 CARBAMAZEPINE 2020 CBC (COMPLETE BLOOD COUNT) 2020 CBC (COMPLETE BLOOD COUNT) 04/24/2020 CBC (COMPLETE BLOOD COUNT) 01/14/2018 CBC (COMPLETE BLOOD COUNT) 02/21/2019 COMPREHENSIVE METABOLIC PANEL 01/14/2018 COMPREHENSIVE METABOLIC PANEL 04/13/2018 COMPREHENSIVE METABOLIC PANEL 04/24/2020 COMPREHENSIVE METABOLIC PANEL 2020 LIPID PANEL 2020 LIPID PANEL 04/24/2020 LIPID PANEL 01/14/2018 URINALYSIS, COMPLETE 02/21/2019 URINALYSIS, COMPLETE 04/24/2020 URINALYSIS, COMPLETE 2020 Carbamazepine (Tegretol) Level 5 UC XR Shoulder 2+ Views LT 06/28/2018 Mammo: Diagnostic Mammogram Bilateral MM Digital Mammo Screening 02/21/2019 LIPID PANEL, STANDARD 09/19/2024 LIPID PANEL, STANDARD 05/15/2023 LIPID PANEL, STANDARD 01/23/2025 LIPID PANEL, STANDARD 07/04/2021 LIPID PANEL, STANDARD 01/27/2023 LIPID PANEL, STANDARD 11/04/2023 COMPREHENSIVE METABOLIC PANEL 01/27/2023 COMPREHENSIVE METABOLIC PANEL 11/04/2023 COMPREHENSIVE METABOLIC PANEL 07/04/2021 COMPREHENSIVE METABOLIC PANEL 01/23/2025 COMPREHENSIVE METABOLIC PANEL 05/15/2023 COMPREHENSIVE METABOLIC PANEL 09/19/2024 CBC (INCLUDES DIFF/PLT) 09/19/2024 CBC (INCLUDES DIFF/PLT) 05/15/2023 CBC (INCLUDES DIFF/PLT) 01/27/2023 CBC (INCLUDES DIFF/PLT) 01/23/2025 CBC (INCLUDES DIFF/PLT) 07/04/2021 CBC (INCLUDES DIFF/PLT) 11/04/2023 URINALYSIS, COMPLETE 11/04/2023 URINALYSIS, COMPLETE 01/23/2025 URINALYSIS, COMPLETE 01/27/2023 URINALYSIS, COMPLETE 05/15/2023 HEMOGLOBIN A1c 01/27/2023 HEMOGLOBIN A1c 01/23/2025 VITAMIN D,25-OH,TOTAL,IA 01/27/2023 VITAMIN D,25-OH,TOTAL,IA 05/15/2023 CARBAMAZEPINE, TOTAL 07/04/2021 Dexa Bone Density (Axial) 02/21/2019 Knee 3 Views Right 05/26/2023 SARS-CoV-2 RNA, QUAL RT-PCR 01/08/2021 Next Appt Details Provider Name:MINERVA Shaye JEANNE, 05/01/2025 09:00:00 AM, [address], [place], [address], Insurance Providers Payer Name Payer Address Payer Phone Subscriber Number Group Number Insured Name Patient Relationship to Insured Coverage Start Date Coverage End Date [employer] [address] [place] [phone] [id number] ANDRIA CLAYTON Self - patient is the insured 2 Medical (General) History Medical History History ICD Code Epilepsy, unspecified, not intractable, without status epilepticus G40.909 Hyperlipidemia, unspecified E78.5 Overweight E66.3 Surgical History Surgery Date(Month/Year) tubal ligation 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
--- OUTSIDE RECORDS SUMMARY | 2025-04-02 03:33 | XMS_ITS ---
[facility] Organization Unknown Care Team Organization Name Specialty Phone Email Start Date End [facility] 04/22/2022 4
[2025-04-02 06:00] VITALS: BP 165/80; PULSE 80; RESP 20; TEMP 36.4; O2SAT 99
[2025-04-02] MEDS: Lidocaine HCl Viscous 2 % 15 ML SOLUTION PO (06:00)
[2025-04-02] MEDS: Magnesium Hydrox/Alum Hydrox 30 ML ORAL.SUSP PO (06:00)
--- NOTE | 2025-04-02 06:08 | ED_ITS ---
HPI - Abdominal Pain General Chief Complaint: Abdominal Pain Stated Complaint: Adb pain Time Seen by Provider: 04/02/25 05:08 Source: patient Mode of arrival: ambulatory Limitations: no limitations History of Present Illness ED Provider: Jaison MACARIO HPI narrative: The patient is a 69-year-old female with history of GERD presenting to the ED via EMS for evaluation of epigastric and periumbilical abdominal pain described as a burning aching pain which woke her from sleep. The patient reports she went to bed at 22:00 feeling well, and woke just prior to EMS activation with severe abdominal pain and nausea but without vomiting. Patient reports she moved her bowels and urinating without associated diarrhea, hematochezia, melena, hematuria, or dysuria. The patient reports symptoms did not resolve after using the bathroom and her noted she appeared pale with subjective chills, at which time they activated EMS for evaluation. The patient reports since arriving in the ED her abdominal pain has significantly improved and nausea has resolved, however she still is experiencing some epigastric burning sensation consistent with GERD. The patient reports she ate a normal dinner, which was well cooked, and shared the meal with her family who are without symptoms. The patient reports she did drank coffee earlier this evening which she does on a regular basis. The patient denies any alcohol use tonight or at baseline. The patient reports remote history of , denies other surgical abdominal history. Related Data Previous Rx's ?Medication ?Instructions ?Recorded famotidine 20 mg tablet (Pepcid) 20 mg PO BID #28 tabs 04/02/25 omeprazole 20 mg capsule,delayed 20 mg PO DAILY #14 ca ps 04/02/25 release Allergies Allergy/AdvReac Type Severity Reaction Status Date / Time No Known Allergies Allergy Verified 04/02/25 01:07 Review of Systems Review of Systems Yes all other systems are reviewed and are negative [facility] Social History Social History Smoked in Last 30 Days: No Use of substances other than those prescribed or required for medical reasons: No Advance Directives: No Advance Directives Information Provided: Yes Do you have a plan to hurt others: No Plan Physical Exam ED Vital Signs: Vital Signs - 24 hr 04/02/25 01:02 04/02/25 06:00 04/02/25 06:33 Temperature 97.5 F 97.5 F 97.5 F Pulse Rate 76 80 80 Respiratory Rate 18 20 20 Blood Pressure 188/81 H 165/80 H 165/80 H Pulse Oximetry 99 99 Oxygen Delivery Method Room Air Room Air BMI result Body Mass Index 28.7 CONSTITUTIONAL: The patient appears non-toxic, well nourished and in no acute distress. Vital signs as documented. HEAD: Atraumatic, normocephalic. EYES: EOMs grossly intact, pupils equal, conjunctiva clear, no exudate. ENT: Nares patent, no discharge. Airway patent, no audible stridor, visible mucosa is pink and moist without noted lesions. NECK: Trachea is midline, no obvious masses or gross abnormalities. CHEST: Symmetric movement, normal appearance. LUNGS: LS present and CTAB, no w/r/r. Non-labored work of breathing. CARDIAC: Regular Rhythm, S1/S2 appreciated, no murmurs, rubs or gallops. ABDOMEN: Abdomen soft and non-tender x4 quadrants, mild epigastric tenderness, negative rebound, no palpable masses or organomegaly. : Deferred. EXTREMITIES: Normal tone, moves all extremities spontaneously without reported pain. No obvious acute injury or deformity noted. NEURO: Alert and oriented x3, CN II-XII appear grossly intact. Cerebellar Functioning grossly intact. No obvious sensory or motor deficits. Speech clear and appropriate. PSYCH: normal affect, appropriate eye contact, fluid speech, with appropriate response to questioning. No reported suicidality or homicidality. SKIN: Warm, dry, color appropriate, normal turgor. No rashes noted. Medical Decision Making Medical Decision Making MDM Narrative: 6:08 AM 04/02/2025 (Latia MACARIO): The patient is a 69-year-old female with history of GERD presenting to the ED via EMS for evaluation of epigastric and periumbilical abdominal pain described as a burning aching pain which woke her from sleep. The patient reports she went to bed at 22:00 feeling well, and woke just prior to EMS activation with severe abdominal pain and nausea but without vomiting. Patient reports she moved her bowels and urinating without associated diarrhea, hematochezia, melena, hematuria, or dysuria. The patient reports symptoms did not resolve after using the bathroom and her noted she appeared pale with subjective chills, at which time they activated EMS for evaluation. The patient reports since arriving in the ED her abdominal pain has significantly improved and nausea has resolved, however she still is experiencing some epigastric burning sensation consistent with GERD. The patient reports she ate a normal dinner, which was well cooked, and shared the meal with her family who are without symptoms. The patient reports she did drank coffee earlier this evening which she does on a regular basis. The patient denies any alcohol use tonight or at baseline. The patient reports remote history of , denies other surgical abdominal history. On exam the patient has mild epigastric tenderness without associated rebound, negative Ramirez's, negative CVAT bilaterally, no other acute findings. The patient is very well-appearing. The patient's EKG is nonischemic, laboratory evaluation shows no leukocytosis, anemia, electrolyte abnormality, or [place]. The patient's LFTs are unremarkable. Lipase is normal. The patient's troponin is negative. We will treat the patient's symptoms with GI cocktail, following GI cocktail we will reassess for resolution of symptoms. If patient's symptoms have resolved patient will be discharged with Pepcid and omeprazole for 2 weeks for suspected gastritis. If no improvement in symptoms following GI cocktail we will consider imaging or additional intervention. 6:26 AM 04/02/2025 (Latia MACAIRO): Patient reports symptoms have resolved following GI cocktail, patient has no additional abdominal tenderness. The patient will be discharged with Pepcid omeprazole as described above. Admission/Observation Consideration of admission/observation: Escalation of care including admission/observation considered Lab Data MDM Lab Attestation statement: I reviewed the patient's lab results. 04/02/25 01:31 04/02/25 01:31 Labs: Lab Results 04/02/25 Range/Units 01:31 WBC 6.1 (4.8-10.8) X10*3/uL RBC 4.54 (4.20-5.50) X10*6/uL Hgb 13.4 (12.0-16.0) g/dl Hct 40.8 (37.0-47.0) % MCV 89.9 (80.0-98.0) fL MCH 29.5 (27.0-33.0) pg MCHC 32.8 (31.0-35.0) g/dl RDW 12.7 (11.0-16.0) % Plt Count 224 (160-400) X10*3/uL MPV 10.2 (9.4-12.3) fL Immature Gran % (Auto) 0.3 (0.0-0.4) % Neut % (Auto) 59.4 (45-73) % Lymph % (Auto) 33.3 (20-40) % [place] % (Auto) 5.4 (2-11) % Eos % (Auto) 1.3 (0-4) % Baso % (Auto) 0.3 (0-2) % Lymph # (Auto) 2.0 (1.2-4.9) X10*3/uL [place] # (Auto) 0.3 (0.1-1.2) X10*3/uL Eos # (Auto) 0.1 (0.0-0.4) X10*3/uL Baso # (Auto) 0.0 (0.0-0.2) X10*3/uL Abs Immat Gran (auto) 0.02 (0.00-0.03) X10*3/uL Absolute Neuts (auto) 3.6 (2.0-8.3) x10*3/uL Absolute Nucleated RBC 0.000 (0.0-0.012) X10*3/uL Nucleated RBC % (auto) 0.0 (0.0-0.2) /100WBC Sodium 143 (135-145) mmol/L Potassium 4.3 (3.3-5.1) mmol/L Chloride 112 H (96-108) mmol/L Carbon Dioxide 23 (22-29) mmol/L Anion Gap 12 (12-20) BUN 16 (9-16) mg/dL Creatinine 0.81 (0.5-1.4) mg/dL Estim Creat Clear Calc 61.4 Estimated GFR > 60 Random Glucose 114 (60-115) mg/dL Calcium 9.1 (8.4-10.2) mg/dL Magnesium 2.0 (1.6-2.6) mg/dL Total Bilirubin 0.2 (0.0-1.0) mg/dL Direct Bilirubin < 0.2 (0.0-0.5) mg/dL AST 34 H (5-31) U/L ALT 20 (0-31) U/L Alkaline Phosphatase 84 (39-117) U/L Troponin I High Sens < 2.7 (<3.5-17.0) ng/L Total Protein 7.1 (6.5-8.0) g/dL Albumin 4.5 (3.5-5.0) g/dL Lipase 36 (8-78) U/L Independent Interpretation I performed an independent interpretation of an: EKG (EKG shows sinus rhythm with a rate of 71, no evidence of acute ischemia, no ST elevation, no ectopy. QTC 439. No previous for comparison. ) Medications Administered Discontinued Medications Generic Name Dose Route Start Last Admin Trade Name Freq PRN Reason Stop Dose Admin Al Hydroxide/Mg Hydroxide 30 ml 04/02/25 05:30 04/02/25 06:00 Magnesium Hydrox/Alum Hydrox 30 Ml Oral.Susp PO 04/02/25 05:31 30 ml ONCE ONE Administration Famotidine 20 mg 04/02/25 05:30 04/02/25 06:01 Famotidine 20 Mg Tablet PO 04/02/25 05:31 20 mg ONCE ONE Administration Lidocaine HCl 15 ml 04/02/25 05:30 04/02/25 06:00 Lidocaine Hcl Viscous 2 % 15 Ml Solution PO 04/02/25 05:31 15 ml ONCE ONE Administration Discharge Plan Discharge Clinical Impression: Gastritis Qualifiers: Gastritis type: unspecified gastritis Chronicity: acute Gastritis bleeding: w ithout bleeding Qualified Code(s): K29.00 - Acute gastritis without bleeding Patient Disposition: Home, Self-Care Instructions: Gastritis (ED), Diet for Stomach Ulcers and Gastritis (ED) Additional Instructions: Thank you for choosing [facility] Emergency Department for your care today. Thankfully your laboratory evaluation, EKG, and exam today is reassuring. There was no evidence of a bacterial, cardiac, liver, gallbladder, pancreatic, metabolic, obstructive, or other dangerous process causing your symptoms. At this time there is no indication for admission to the hospital or continued ED observation, and it is safe to discharge you home. Your symptoms improved following a GI cocktail in the ED. Your response to this intervention indicates your symptoms were secondary to inflammation of your stomach/esophagus, a condition known as gastritis/GERD. We are treating you with Pepcid and omeprazole for the next 2 weeks to help reduce the likelihood of recurrence, and severity of your symptoms. Please read the attached discharge information regarding how to amend your diet to reduce your symptoms. Please follow up with your primary care physician for re-evaluation, additional management of your symptoms, referral to a GI specialist as deemed appropriate, and continued preventative care. If you do not have a primary care physician, please call the [facility] at [phone] to establish a new primary care physician. While waiting to establish your new primary care physician, you can call our Walk[facility] at [phone] for non-emergency needs. Please return to the emergency department if you develop a severe or sudden change in your symptoms, a fever over 100.4 that does not improve with Tylenol or Ibuprofen, recurrent vomiting, or any other new or worsening symptoms or concerns. Prescriptions: New famotidine [Pepcid] 20 mg tablet 20 mg PO BID Qty: 28 0RF omeprazole 20 mg capsule,delayed release(DR/EC) 20 mg PO DAILY Qty: 14 0RF Referrals: Dena Biswas MD [Primary Care Provider, Primary Care] Clinical Impression: Gastritis Interventions: ED Discharge Assessment Last Done: 04/02/25 06:33 Discharge Date/Time: 04/02/25 06:34 Print Language: Amharic
[2025-04-02 06:33] VITALS: BP 165/80; PULSE 80; RESP 20; TEMP 36.4
== END 2025-04-02 06:34 | disposition home or self-care (01) ==
PROVIDERS: Emergency Provider Emergency Medicine; PCP Internal Medicine
DX: K29.00 Acute gastritis without bleeding (principal); I10 Essential (primary) hypertension
CPT/HCPCS: 36415; 80053; 82248; 83690; 83735; 84484; 85025; 93005; 99283; 99284

== ENCOUNTER → 2025-04-02 01:08 | Outpatient (BNV) | payer MEDICARE, SELFPAY | PROVIDERS: Emergency Provider Emergency Medicine; PCP Internal Medicine; Visit Provider Internal Medicine Cardiovascular Disease | DX: I10 Essential (primary) hypertension (principal) | CPT/HCPCS: 93010 ==